=== PATIENT | female | born 1960 | race Caucasian/White ===

== ENCOUNTER → 2016-06-06 | Outpatient (RCR) ==
--- NOTE | 2016-06-09 10:37 | RS.OPPTEV2 ---
Date of Note: 06/06/16 Visit #: 1 Date of Evaluation: 06/06/16 Payer Source: Medicaid Surgery Performed?: No Treatment Diagnosis: Low back pain, Scoliosis History of Condition/Mechanism of Injury:: Patient reports back pain on and off for about a year. Reports no known injury. Prior Level of Function.....Patient was independent with: ADL's, Self Care, Caregiving, Ambulation/Mobility, Community Integration/Access Functional Limitations: Sitting, Standing, Community Access/Integration (stairs) Current Subjective/complaints:: Patient reports having trouble with her low back since have her child, who is now 21 years old. States pain is in the low back and not in the LE's. States she has to change positions frequently. Denies tingling into the LE's. States she does notice the feeling of weakness at times in the LE's, especially if she goes up and down stairs alot. States she was recently diagnosed with Scoliosis. Reports she sleeps fine. She uses heat at times. Medical History Surgical History Comments:: Left foot surgery Smoking Status: Current every day smoker Hx Home Medications: None Patient's Goals: He goal is to get relief of back pain. Pain Assessment - Pain Description Pain Location: low back Current Pain Intensity: 5/10 Worst Pain Intensity: 8/10 Functional Outcome Measure Oswestry LBP: 14 - G Codes & Severity Modifier G Codes & Modifier: NA Source of G Code score: NA Observation - Observation Posture: Forward Head, Rounded Shoulders, Decreased Lumbar Lordosis Comments: Demonstrates right rotation of lower thoracic and lumbar spine in standing. Less rotation noted of spine in sitting. Gait - Gait Pattern General Gait Pattern Observation: No Deviations/Normal - ROM Lumbar Flexion: Hand reach to Mid-Shins Sidebending to Left: Reach to Mid-thigh Sidebending to Right: Reach to Lateral Joint Line Lumbar Spine ROM Limitations: Soft Tissue Tightness Comments: Lumbar extension WFL's. Bilateral LE AROM is WFL's. - Strength Trunk Lateral Flexion: 4 Good Trunk Rotation: 4 Good Comments: Bilateral LE strength 5/5 throughout. - Special Tests IGNACIO Test: Negative Left, Negative Right SLR Test: Negative Left, Negative Right Seated Dural Stretch Test: Negative Left, Negative Right SI Joint Compression: Negative SI Joint Distraction: Negative Palpation Comments:: No tenderness reported with palpation throughout the lumbar spine or SI joints. Sensation - Sensation Right Lower Extremity: Intact/Normal Left Lower Extremity: Intact/Normal Additional Comments: Additional Comments: right SLR to 50 degrees, left to 60 degrees. Interventions - Exercise/Activities/Manual Therapy Exercises/Activities: Patient instructed in stretching into trunk rotation, right HS and SKTC stretch, and scapular retraction for HEP. Manual Therapy: NA HOME EXERCISE PROGRAM: stretching into trunk rotation, right HS and SKTC stretch , and scapular retraction for HEP. - Charges Total Direct Minutes: 45 mins Total Treatment Time: 45 mins Procedures billed for this date of service:: Celia carey complexity Assessment Assessment: Patient presents to therapy with a diagnosis of low back pain and scoliosis. She exhibits right lower thoracic and lumbar spinal rotation, which improves from standing to sitting. She demonstrates muscle imbalances of flexibility at the trunk and LE's. Reports difficulty maintaining prolonged standing or sitting due to back pain. She demonstrates potential to benefit from stretching to the trunk and LE's to equal muscle flexibility and strengthening to provided increased support to the spine. Patient Education: Education of diagnosis, Body/Joint mechanics, Home Exercise Program, Home Safety, Activity Modification, Education of Plan of Care Rehab Potential: Good Short Term Goals Goal #1: Patient independent in basic HEP. Goal to be met by: 06/16/16 Goal #2: SLR equal bilaterally. Goal to be met by: 06/23/16 Goal #3: Pt to exhibit minimal trunk rotation is standing. Goal to be met by: 06/23/16 Correction Goals Goal #1: Patient knows HEP and to cont. exercises to maintain functional level at DC Goal to be met by: 07/04/16 Goal #2: Pt able to tolerate prolonged sitting and standing with minimal back pain. Goal to be met by: 07/04/16 Goal #3: Score on Oswestry LBP scale improved to 5. Goal to be met by: 07/04/16 Plan - Treatment to be Provided Procedures: Therapeutic Exercises, Therapeutic Activity, Manual Therapy, Patient Education Modalities: Electrical Stimulation, Ultrasound/Phonophoresis, Cryotherapy, Hot Packs - Treatment Plan Frequency: 3 X week Duration: 3 weeks ORDER # VISITS AND/OR THROUGH DATE: 07/04/16 - Treatment Code (1) Low back pain Qualifiers: Chronicity: chronic Back pain laterality: bilateral Sciatica presence: without sciatica Qualified Description: Chronic bilateral low back pain without sciatica Qualifier Code(s): (M54.5) Low back pain, ( G89.29) Other chronic pain (2) Lumbar scoliosis Qualifiers: Scoliosis type: idiopathic Idiopathic scoliosis type: other Qualified Description: Other idiopathic scoliosis, lumbar region Qualifier Code(s): (M41.26) Other idiopathic scoliosis, lumbar region
== END ==
PROVIDERS: ATTEND Physician Assistant Medical
DX: M41.9 Scoliosis, unspecified (principal)

== ENCOUNTER 2016-06-22 10:00 | Outpatient (RCR) ==
--- NOTE | 2016-06-13 11:15 | RS.OPPTDN ---
Subjective Date of Note: 06/09/16 Visit #: 2 Date of Evaluation: 06/06/16 Payer Source: Medicaid Treatment Diagnosis: Low back pain, Scoliosis Current Subjective/complaints:: Reports doing well with heat and exercise today , and pain is better today. States she will continue HEP as instructed. Pain Assessment - Pain Description Pain Location: Low Back Current Pain Intensity: 3-4/10 Other Comments regarding Pain:: Reports pain is much better today. - Heat/Cryotherapy Treatment: Hot Pack ([id number] to the lowback prior to EX. Patient in sitting. ) Interventions - Exercise/Activities/Manual Therapy Exercises/Activities: Patient assisted with stretching of bilateral hamstrings, SKTC, piriformis, and trunk rotation. Isometric hip add and isometric hip flexion. Bridging. Reviewed patient education of dx, body mechanics, and HEP. Total minutes of Exercise: 24mins Manual Therapy: NA HOME EXERCISE PROGRAM: Hamstring, SKTC, and trunk rotation. Isometric hip flexion and adduction. - Charges Total Direct Minutes: 24mins Total Treatment Time: 44mins Procedures billed for this date of service:: HP, EX2 Assessment: Patient is responding to treatment. She appears motivated to progress with exercise. Patient Education: Education of diagnosis, Body/Joint mechanics, Home Exercise Program Patient demonstrates compliance with HEP?: Yes Short Term Goals Goal #1: Patient independent in basic HEP. Goal to be met by: 06/16/16 Progress towards Goal:: Progressing Goal #2: SLR equal bilaterally. Goal to be met by: 06/23/16 Progress towards Goal:: Progressing Goal #3: Pt to exhibit minimal trunk rotation is standing. Goal to be met by: 06/23/16 Progress towards Goal:: Progressing Assisted Goals Goal #1: Patient knows HEP and to cont. exercises to maintain functional level at DC Goal to be met by: 07/04/16 Progress towards goal: Progressing Goal #2: Pt able to tolerate prolonged sitting and standing with minimal back pain. Goal to be met by: 07/04/16 Goal #3: Score on Oswestry LBP scale improved to 5. Goal to be met by: 07/04/16 Plan PLAN OF CARE EXPIRES ON:: 07/04/16 ORDER # VISITS AND/OR THROUGH DATE: 07/04/16 PLAN: Continue Plan of Care (Continue and progress exericse improve strength and posture.)
--- NOTE | 2016-06-13 11:24 | RS.OPPTDN ---
Subjective Date of Note: 06/13/16 Visit #: 3 Date of Evaluation: 06/06/16 Payer Source: Medicaid Treatment Diagnosis: Low back pain, Scoliosis Current Subjective/complaints:: Patient reports she is working on HEP and back pain is much better. 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 Pain Assessment - Pain Description Pain Location: Low Back Current Pain Intensity: 1-2/10 - Heat/Cryotherapy Treatment: Hot Pack ([id number] to the lowback prior to EX. Patient in sitting. ) Interventions - Exercise/Activities/Manual Therapy Exercises/Activities: [id number]. Patient assisted with stretching of bilateral hamstrings, SKTC, piriformis, and trunk rotation. Isometric hip add and isometric hip flexion. Bridging. SLR. Alt hip flexion with wand for overhead flexion. Isometric trunk rotation in neutral. In sitting, red theraband for scapular retraction. Wall slides with large therapy ball. Reviewed patient education of dx, body mechanics, safety, and HEP. Total minutes of Exercise: 25mins Manual Therapy: NA HOME EXERCISE PROGRAM: Hamstring, SKTC, and trunk rotation. Isometric hip flexion and adduction. Red and green therabands for scapular retraction. Wall slides. - Charges Total Direct Minutes: 25mins Total Treatment Time: 45mins Procedures billed for this date of service:: HP, EX2 Assessment: Patient reporting a consistent reduction in pain. Appears to be consistently working on HEP. Patient Education: Home Exercise Program Patient demonstrates compliance with HEP?: Yes Short Term Goals Goal #1: Patient independent in basic HEP. Goal to be met by: 06/16/16 (75%) Progress towards Goal:: Progressing Goal #2: SLR equal bilaterally. Goal to be met by: 06/23/16 (75%) Progress towards Goal:: Progressing Goal #3: Pt to exhibit minimal trunk rotation is standing. Goal to be met by: 06/23/16 (50%) Progress towards Goal:: Progressing Sap Crm Developer Goals Goal #1: Patient knows HEP and to cont. exercises to maintain functional level at DC Goal to be met by: 07/04/16 Progress towards goal: Progressing Goal #2: Pt able to tolerate prolonged sitting and standing with minimal back pain. Goal to be met by: 03/28/17 (100%) Progress towards goal: Met Goal #3: Score on Oswestry LBP scale improved to 5. Goal to be met by: 07/04/16 Plan PLAN OF CARE EXPIRES ON:: 07/04/16 ORDER # VISITS AND/OR THROUGH DATE: 07/04/16 PLAN: Continue Plan of Care (Continue and progress exercise.)
--- NOTE | 2016-06-15 11:25 | RS.OPPTDN ---
Subjective Date of Note: 06/15/16 Visit #: 4 Date of Evaluation: 06/06/16 Payer Source: Medicaid Treatment Diagnosis: Low back pain, Scoliosis Current Subjective/complaints:: Patient reporting her back pain is more of a soreness. States she does feel a sharp pain at times when turning or rotating trunk when bending to lift firewood. Pain Assessment - Pain Description Pain Location: Low Back Current Pain Intensity: 1-2/10 - Heat/Cryotherapy Treatment: Hot Pack ([id number] to lowback prior to EX. Patient in sitting. ) Interventions - Exercise/Activities/Manual Therapy Exercises/Activities: [id number]. Patient assisted with stretching of bilateral hamstrings, SKTC, piriformis, and trunk rotation. Isometric hip add and isometric hip flexion. Bridging and began half bridging. SLR and hip abduction. Alt hip flexion 3# each ankle, then alt hip flexion with 4# wand for overhead flexion. Isometric trunk rotation in neutral. In sitting, green theraband for scapular retraction. Began standing hip extension with green theraband, 2s/ 10reps. With large therapy ball, alt UE/LE lifts. Reviewed patient education of dx, body mechanics, safety, and HEP. Total minutes of Exercise: 28mins Manual Therapy: NA HOME EXERCISE PROGRAM: Hamstring, SKTC, and trunk rotation. Isometric hip flexion and adduction. Blue therabands for scapular retraction. Wall slides. Alt UE/LE lifts leaning on large ball against wall. Green theraband for hip extension in standing. - Charges Total Direct Minutes: 28mins Total Treatment Time: 48mins Procedures billed for this date of service:: HP, EX2 Assessment: Patient progressing with exercise and reports reduction in pain. Patient Education: Body/Joint mechanics, Home Exercise Program, Activity Modification Patient demonstrates compliance with HEP?: Yes Short Term Goals Goal #1: Patient independent in basic HEP. Goal to be met by: 06/16/16 (100%) Progress towards Goal:: Met Goal #2: SLR equal bilaterally. Goal to be met by: 06/23/16 (100%) Progress towards Goal:: Met Goal #3: Pt to exhibit minimal trunk rotation is standing. Goal to be met by: 06/23/16 (70%) Progress towards Goal:: Progressing Dog Raiser Goals Goal #1: Patient knows HEP and to cont. exercises to maintain functional level at DC Goal to be met by: 07/04/16 Progress towards goal: Progressing Goal #2: Pt able to tolerate prolonged sitting and standing with minimal back pain. Goal to be met by: 07/04/16 (100%) Progress towards goal: Met Goal #3: Score on Oswestry LBP scale improved to 5. Goal to be met by: 07/04/16 Plan PLAN OF CARE EXPIRES ON:: 07/04/16 ORDER # VISITS AND/OR THROUGH DATE: 07/04/16 PLAN: Continue Plan of Care (Continue and progress exercise.)
--- NOTE | 2016-06-20 11:19 | RS.OPPTDN ---
Subjective Date of Note: 06/20/16 Visit #: 5 Date of Evaluation: 06/06/16 Payer Source: Medicaid Treatment Diagnosis: Low back pain, Scoliosis Current Subjective/complaints:: Patient reports she is feeling much better. Back pain is low. States she is working on HEP. Pain Assessment - Pain Description Pain Location: Low Back Current Pain Intensity: 1-2/10 - Heat/Cryotherapy Treatment: Hot Pack ([id number] to lowback prior to EX. Paitent in sitting. ) Interventions - Exercise/Activities/Manual Therapy Exercises/Activities: [id number]. Patient assisted with stretching of bilateral hamstrings, SKTC, piriformis, and trunk rotation. Isometric hip add and isometric hip flexion. Bridging. SLR added 1 1/2# and alt hip flexion increased to 4# each ankle, 2s/10reps each. Isometric trunk rotation in neutral. Red theraband for hip add and abdd with knees in full extension, 2s/10reps each. In sitting, green theraband for scapular retraction 3s/10reps. Standing hip extension with 2# each ankle, 2s/10reps. Leg press 60#, 5s/10reps mod pace, then 3s/10reps slow pace. Reviewed patient education of dx, body mechanics, safety, and HEP. Total minutes of Exercise: 30mins Manual Therapy: NA HOME EXERCISE PROGRAM: Hamstring, SKTC, and trunk rotation. Isometric hip flexion and adduction. Blue therabands for scapular retraction. Wall slides. Alt UE/LE lifts leaning on large ball against wall. Green theraband for hip extension in standing. - Charges Total Direct Minutes: 30mins Total Treatment Time: 50mins Procedures billed for this date of service:: HP, EX2 Assessment: Patient progressing with strengthening. decreased pain, and increase actiity level. Patient Education: Body/Joint mechanics, Home Exercise Program, Home Safety Patient demonstrates compliance with HEP?: Yes Short Term Goals Goal #1: Patient independent in basic HEP. Goal to be met by: 06/16/16 (100%) Progress towards Goal:: Met Goal #2: SLR equal bilaterally. Goal to be met by: 06/23/16 (100%) Progress towards Goal:: Met Goal #3: Pt to exhibit minimal trunk rotation is standing. Goal to be met by: 06/23/16 (75%) Progress towards Goal:: Progressing Halfway Goals Goal #1: Patient knows HEP and to cont. exercises to maintain functional level at DC Goal to be met by: 07/04/16 Progress towards goal: Progressing Goal #2: Pt able to tolerate prolonged sitting and standing with minimal back pain. Goal to be met by: 07/04/16 (100%) Progress towards goal: Met Goal #3: Score on Oswestry LBP scale improved to 5. Goal to be met by: 07/04/16 Plan PLAN OF CARE EXPIRES ON:: 07/04/16 ORDER # VISITS AND/OR THROUGH DATE: 07/04/16 PLAN: Continue Plan of Care
--- NOTE | 2016-06-22 11:26 | RS.OPPTDN ---
Subjective Date of Note: 06/22/16 Visit #: 6 Date of Evaluation: 06/06/16 Payer Source: Medicaid Treatment Diagnosis: Low back pain, Scoliosis Current Subjective/complaints:: Patient reports she is doing much better. States she is starting a new job this weekend. States she feels like she will be able to most of her job duties. Pain Assessment - Pain Description Pain Location: Low Back Current Pain Intensity: 1/10 on average - Heat/Cryotherapy Treatment: Hot Pack ([id number] to the lowback prior to EX. Patient in sitting. ) Interventions - Exercise/Activities/Manual Therapy Exercises/Activities: [id number]. Patient assisted with stretching of bilateral hamstrings, SKTC, piriformis, and trunk rotation. Isometric hip add and isometric hip flexion. Bridging. SLR 1 1/2# and alt hip flexion 4# each ankle, 2s/10reps each. Isometric trunk rotation in neutral. Green theraband for hip abduction in hook-lying. Red theraband for hip add and abd with knees in full extension, 2s/10reps each. In standing, increased to black theraband for scapular retraction 3s/10reps. Standing alt hip extension no weights, each 2s/ 10reps. Patient education on proper lifting technique. Reviewed patient education of dx, body mechanics, safety, and HEP. Patient given additional theraband for progression of HEP. Total minutes of Exercise: 30mins Manual Therapy: NA HOME EXERCISE PROGRAM: Hamstring, SKTC, and trunk rotation. Isometric hip flexion and adduction. Blue therabands for scapular retraction. Wall slides. Alt UE/LE lifts leaning on large ball against wall. Green theraband for hip extension in standing. - Objective Findings Observations,measurements,etc.: Patient reassessed Oswestry Low Back Pain Scale and improved to 2% deficit (was 14% on Evaluation). - Charges Total Direct Minutes: 30mins Total Treatment Time: 50mins Procedures billed for this date of service:: HP, EX2 Assessment: Patient has progressed well and met all treatment goals. She is independent with HEP and will continue following discharge. Patient Education: Body/Joint mechanics, Home Exercise Program, Home Safety, Activity Modification, Education of Plan of Care Patient demonstrates compliance with HEP?: Yes Short Term Goals Goal #1: Patient independent in basic HEP. Goal to be met by: 06/16/16 (100%) Progress towards Goal:: Met Goal #2: SLR equal bilaterally. Goal to be met by: 06/23/16 (100%) Progress towards Goal:: Met Goal #3: Pt to exhibit minimal trunk rotation is standing. Goal to be met by: 06/23/16 (100%) Progress towards Goal:: Met Care Home Goals Goal #1: Patient knows HEP and to cont. exercises to maintain functional level at DC Goal to be met by: 07/04/16 (100%) Progress towards goal: Met Goal #2: Pt able to tolerate prolonged sitting and standing with minimal back pain. Goal to be met by: 07/04/16 (100%) Progress towards goal: Met Goal #3: Score on Oswestry LBP scale improved to 5. Goal to be met by: 07/04/16 (100%) Progress towards goal: Met Plan PLAN OF CARE EXPIRES ON:: 07/04/16 ORDER # VISITS AND/OR THROUGH DATE: 07/04/16 PLAN: Plan for Discharge (Discharge with HEP.)
--- NOTE | 2016-06-22 11:29 | RS.QUICKDC ---
Discharge from PT Date of Discharge: 06/22/16 Number of Visits: 6 Reason for Discharge: Patient progressed well and benefitted from treatment. She met all goals and was independent with HEP on last visit. Discharge at this time with HEP.
== END 2016-07-07 ==
PROVIDERS: ATTEND Physician Assistant Medical
DX: M41.9 Scoliosis, unspecified (principal)

== ENCOUNTER 2018-05-22 15:00 | Outpatient (CLI) ==
--- NOTE | 2018-05-22 15:23 | DI ---
EXAM: RIGHT SHOULDER HISTORY: Right shoulder pain FINDINGS: Right shoulder three-view. Bone density appears mildly decreased. Glenohumeral joint is within normal limits. There is mild osteoarthritis of the acromioclavicular joint. No fracture or d islocation. No joint separation. Soft tissues are within normal limits IMPRESSION: 1. AC joint osteoarthritis.
== END 2018-05-22 15:01 | disposition home or self-care (01) ==
LOC: RAD 15:00
PROVIDERS: ATTEND Physician Assistant
DX: M25.511 Pain in right shoulder (principal)

== ENCOUNTER 2018-08-02 08:57 | Outpatient (RCR) ==
--- NOTE | 2018-08-02 15:29 | RS.OPPTEV2 ---
Date of Note: 08/02/18 Visit #: 1 Number of visits approved by Insurance: pending Date of Evaluation: 08/02/18 Payer Source: Medicaid Surgery Performed?: No Treatment Diagnosis: OA R AC joint, impingement syndrome R shld, R shld pain History of Condition/Mechanism of Injury:: Pain began approx 6 months ago, and didn't go to the MD until 3 months ago. No definite injury noted. Had to wait 3 months to see MD. Prior Level of Function.....Patient was independent with: ADL's, Self Care, Work /Vocation, Caregiving, Ambulation/Mobility, Community Integration/Access Level of Function: pt employed at [employer] in [place]. Has 15 y/o daughter at home. Functional Limitations: Sleep, Self Care, ADL's, Reaching, Pushing, Pulling, Lifting, Carrying, Sitting, Community Access/Integration Current Subjective/complaints:: pt states that she is tired today after working late last night. States she is not sure how she hurt her shld, states she woke up with it hurting. Treatment Side (optional): Right *Precautions: n/a Medical History Medical History: Unremarkable Surgical History Comments:: surgery on L foot Smoking Status: Current every day smoker Diagnostic Testing/Imaging:: x ray 05/2018: AC joint OA Hx Home Medications: none Patient's Goals: decrease R shld pain Pain Assessment - Pain Description Pain Location: R shld Pain Description: Aching Current Pain Intensity: 7/10 Functional Outcome Measure UE Functional Index: 43 - G Codes & Severity Modifier G Codes & Modifier: n/a Source of G Code score: n/a Observation - Observation Posture: Forward Head, Rounded Shoulders, Increased Thoracic Kyphosis, Decreased Lumbar Lordosis Handedness: Right Gait - Gait Pattern General Gait Pattern Observation: No Deviations/Normal General Range of Motion: LUE WFL's. BLE WFL's Muscle Strength: LUE 5/5. BLE 5/5 Shoulder ROM: Left WFL's Shoulder Muscle Strength: Left WFL's - Right Shoulder ROM Right Shoulder Flexion: 108 Right Shoulder Abduction: 98 Right Shoulder Internal Rotation: 50 Right Shoulder External Rotation: 32 Right Shoulder ROM Limitations: Soft Tissue Tightness, Muscle Weakness, Pain - Right Shoulder Strength Right Shoulder Flexion: 3- Fair- Right Shoulder Extension: 3- Fair- Right Shoulder Abduction: 3- Fair- Right Shoulder Adduction: 3 Fair Right Shoulder External Rotation: 3- Fair- Right Shoulder Internal Rotation: 3- Fair- - Special Tests Shoulder Empty Can (Supraspinatus) Test: Positive Right Shoulder Speed's Sign Test: Positive Right Shoulder Drop Arm Test: Positive Right Shoulder Dodson-Sam Impingement Test: Positive Right Acromioclavicular Joint Distraction Test: Positive Right Palpation Palpation Findings: Tenderness Comments:: tenderness noted at bicepital groove, as well as area of AC joint Sensation - Sensation Right Upper Extremity: Intact/Normal Left Upper Extremity: Intact/Normal Right Lower Extremity: Intact/Normal Left Lower Extremity: Intact/Normal Balance - Sitting Balance Static Sitting Balance: Normal Dynamic Sitting Balance: Normal - Standing Balance Static Standing Balance: Normal Dynamic Standing Balance: Normal - Treatment Modality: Ultrasound Parameters/Method Applied: 1.5w/cm2 x 7 mins Treatment Area: R shld (with extra time in area of AC joint) Patient Position: Sitting Interventions - Exercise/Activities/Manual Therapy Exercises/Activities: pt performed scapular retraction, shld shrugs as well as corner stretch BUE. Manual Therapy: NA HOME EXERCISE PROGRAM: pt given written home exercise program including: corner stretch, scapular retraction, shld shrugs - Charges Timed Code Treatment Minutes: 48 Total Treatment Time: 54 Procedures billed for this date of service:: carmelina carey, ultrasound EVALUATION COMPLEXITY LEVEL EVALUATION COMPLEXITY LEVEL: HISTORY: Low, EXAM OF BODY SYSTEMS: Low, CLINICAL PRESENTATION: Low, CLINICAL DECISION MAKING: Low Assessment Assessment: pt presents with R shld pain with decreased strength and ROM. pt with signs of impingement. Feel pt would benefit from skilled PT for therex for ROM, strengthening as well as modalities to decrease pain/inflammation. Patient Education: Home Exercise Program, Education of Plan of Care Rehab Potential: Good Short Term Goals Goal #1: pt independent with initial HEP Goal to be met by: 08/16/18 Goal #2: Improve R shld ROM flex 115 abd 110, ER 45 Goal to be met by: 08/16/18 Goal #3: pt rate pain < 7/10 Goal to be met by: 08/16/18 Senior Care Goals Goal #1: pt report able to perform normal work duties with less pain Goal to be met by: 08/30/18 Goal #2: Improve R shld ROM WFL's Goal to be met by: 08/30/18 Goal #3: Decrease pain R shld < 5/10 Goal to be met by: 08/30/18 Plan - Treatment to be Provided Procedures: Therapeutic Exercises, Therapeutic Activity, Manual Therapy, Massage , Patient Education Modalities: Electrical Stimulation, Ultrasound/Phonophoresis, Cryotherapy, Hot Packs - Treatment Plan Frequency: 2 X week Duration: 4 weeks Dates of [employer]s Tester Goals: 08/30/18 Expiration date of current Insurance Approval:: pending - Treatment Code (1) Right shoulder pain Code(s): M25.511 - PAIN IN RIGHT SHOULDER Qualifiers: Chronicity: chronic Qualified Code(s): M25.511 - Pain in right shoulder; G89.29 - Other chronic pain (2) Arthrosis of right acromioclavicular joint Code(s): M19.011 - PRIMARY OSTEOARTHRITIS, RIGHT SHOULDER (3) Impingement syndrome of right shoulder Code(s): M75.41 - IMPINGEMENT SYNDROME OF RIGHT SHOULDER (4) Stiffness of joint, not elsewhere classified, shoulder region Code(s): M25.619 - STIFFNESS OF UNSPECIFIED SHOULDER, NOT ELSEWHERE CLASSIFIED
== END 2018-08-06 23:59 ==
PROVIDERS: ATTEND Nurse Practitioner
DX: M19.011 Primary osteoarthritis, right shoulder (principal); M75.41 Impingement syndrome of right shoulder